=== PATIENT | female | born 1985 | race Caucasian/White ===

== ENCOUNTER 2019-02-12 11:54 | Inpatient (IN) | payer MEDICAID ==
[2019-02-12] MEDS ORDERED: OXYTOCIN 30 UNITS/LR 500 ML IV ×2 (13:00→21:30)
[2019-02-12] MEDS ORDERED: CEFAZOLIN 2 GM/50 ML (PMX) 50 ML IVPB (13:00)
[2019-02-12] MEDS ORDERED: CARBOPROST 250 MCG INJ IM ×2 (13:00→21:30)
[2019-02-12] MEDS ORDERED: METHYLERGONOVINE 0.2 MG INJ IM ×2 (13:00→21:30)
[2019-02-12] MEDS ORDERED: MISOPROSTOL 200 MCG TAB PR ×2 (13:00→21:30)
[2019-02-12 13:09] LABS: ADD MAN DIFF? NO
[2019-02-12] MEDS: LACTATED RINGER'S 1,000 ML IV ×2 (13:10→13:50)
[2019-02-12 13:16] LABS: BASOPHILS % 0.2 % (0.0-2.0); EOSINOPHILS # 0.1 10^3/ul (0.0-0.5); HEMATOCRIT 31.2 % (37.0-47.0); HEMOGLOBIN 10.1 g/dl (12.0-16.0); LYMPHOCYTES # 2.9 10^3/ul (0.8-2.9); LYMPHOCYTES % 35.9 % (15.0-51.0); MEAN CORPUSCULAR HEMOGLOBIN 29.2 pg (29.0-33.0); MEAN CORPUSCULAR HGB CONC 32.4 g/dl (32.0-37.0); MEAN CORPUSCULAR VOLUME 90.2 fl (82.0-101.0); MEAN PLATELET VOLUME 8.6 fl (7.4-10.4); MONOCYTE # 0.8 10^3/ul (0.3-0.9); MONOCYTES % 10.1 % (0.0-11.0); NEUTROPHIL # 4.2 10^3/ul (1.6-7.5); NEUTROPHILS % 52.4 % (39.0-77.0); PLATELET COUNT 233 10^3/UL (140-415); RED BLOOD COUNT 3.46 10^6/ul (4.20-5.40); RED CELL DISTRIBUTION WIDTH 13.1 % (11.5-14.5)
[2019-02-12 13:16] LABS: WHITE BLOOD COUNT 8.1 10^3/ul (4.8-10.8)
[2019-02-12 13:36] LABS: INR 0.91; PROTIME 12.4 Sec (11.9-14.9)
[2019-02-12 13:37] LABS: PARTIAL THROMBOPLASTIN TIME 28.3 Sec (23.0-35.0)
[2019-02-12] MEDS ORDERED: HYDROmorphONE 0.5 MG/0.5 ML SYG IV ×4 (14:00→22:00)
[2019-02-12] MEDS ORDERED: ALBUTEROL 0.083% (NEB) 2.5 MG/3 ML AMP HHN (14:00)
[2019-02-12] MEDS ORDERED: ONDANSETRON 4 MG INJ IV ×2 (14:00→22:00)
[2019-02-12] MEDS ORDERED: KETOROLAC 30 MG INJ IV ×2 (14:00)
[2019-02-12] MEDS ORDERED: NALOXONE (0.4 MG/ML) INJ IV ×2 (14:00→22:00)
[2019-02-12] MEDS ORDERED: DIPHENHYDRAMINE 50 MG INJ IV ×3 (14:00→22:00)
[2019-02-12] MEDS ORDERED: FENTAnyl 50 MCG/ML VIAL IV ×3 (14:00)
[2019-02-12] MEDS ORDERED: METOCLOPRAMIDE 10 MG INJ IV (14:00)
[2019-02-12] MEDS ORDERED: HYDROmorphONE 1 MG/5 ML IV SYRINGE IV ×3 (14:00)
[2019-02-12 14:15] LABS: HEPATITIS B SURFACE ANTIGEN NEGATIVE (NEGATIVE)
[2019-02-12] MEDS: ONDANSETRON 4 MG INJ IV (14:25)
[2019-02-12] MEDS ORDERED: morphine SULFATE/PF (10 MG/10 ML) INJ (16:56)
[2019-02-12] MEDS ORDERED: PHENYLephrine (100 MCG/ML) 5ML SYG (16:56)
[2019-02-12] MEDS ORDERED: OXYTOCIN 30 UNITS/LR 500 ML BAG IV (16:56)
[2019-02-12] MEDS ORDERED: EPHEDrine 25 MG/5 ML SYG (16:56)
[2019-02-12] MEDS ORDERED: FENTAnyl 50 MCG/ML VIAL (17:37)
[2019-02-12] MEDS: OXYTOCIN 30 UNITS/LR 500 ML IV (18:31)
[2019-02-12] MEDS: AZITHROMYCIN 500MG/NS (PMX) 250 ML IVPB (20:55)
[2019-02-12] MEDS: ACETAMINOPHEN 500 MG TAB PO (20:56)
[2019-02-12] MEDS: KETOROLAC 30 MG INJ IV (20:56)
[2019-02-12] MEDS ORDERED: NA PHOSPHATE/BIPHOS 133 ML ENEMA PR (21:30)
[2019-02-12 22:04] LABS: RAPID PLASMA REAGIN NONREACTIVE (NR)
[2019-02-13] MEDS: LACTATED RINGER'S 1,000 ML IV (00:04)
[2019-02-13] MEDS: CEFAZOLIN 2 GM/50 ML (PMX) 50 ML IVPB ×3 (00:44→13:59)
[2019-02-13] MEDS: CLINDAMYCIN 300 MG CAP PO ×4 (05:40→17:19)
[2019-02-13 06:43] LABS: ADD MAN DIFF? NO
[2019-02-13 06:46] LABS: BASOPHILS % 0.2 % (0.0-2.0); EOSINOPHILS % 0.3 % (0.0-7.0); HEMATOCRIT 29.4 % (37.0-47.0); HEMOGLOBIN 9.6 g/dl (12.0-16.0); LYMPHOCYTES # 2.3 10^3/ul (0.8-2.9); MEAN CORPUSCULAR HEMOGLOBIN 29.7 pg (29.0-33.0); MEAN CORPUSCULAR HGB CONC 32.7 g/dl (32.0-37.0); MEAN PLATELET VOLUME 8.7 fl (7.4-10.4); MONOCYTES % 8.4 % (0.0-11.0); NEUTROPHIL # 8.6 10^3/ul (1.6-7.5); NEUTROPHILS % 71.7 % (39.0-77.0); PLATELET COUNT 206 10^3/UL (140-415); RED BLOOD COUNT 3.23 10^6/ul (4.20-5.40); RED CELL DISTRIBUTION WIDTH 13.2 % (11.5-14.5)
[2019-02-13] MEDS: LANOLIN HPA 1 PKT TOP (08:15)
[2019-02-13] MEDS: SENNA/DOCUSATE NA (8.6MG/50MG) TAB PO ×2 (09:01→21:56)
[2019-02-13] MEDS: KETOROLAC 30 MG INJ IV (12:19)
[2019-02-13] MEDS ORDERED: OXYCODONE/ACETAMINOPHEN (5/325) TAB PO (21:30)
[2019-02-13] MEDS ORDERED: HYDROCODONE/APAP (5/325) TAB PO (21:30)
[2019-02-13] MEDS: IBUPROFEN 800 MG TAB PO (21:56)
[2019-02-14] MEDS: CLINDAMYCIN 300 MG CAP PO ×4 (00:27→17:33)
[2019-02-14] MEDS: IBUPROFEN 800 MG TAB PO ×4 (05:47→22:00)
[2019-02-14] MEDS: SENNA/DOCUSATE NA (8.6MG/50MG) TAB PO ×2 (09:41→21:00)
[2019-02-15] MEDS: CLINDAMYCIN 300 MG CAP PO ×3 (00:16→11:54)
[2019-02-15] MEDS: IBUPROFEN 800 MG TAB PO ×2 (02:50→14:39)
[2019-02-15] MEDS: SENNA/DOCUSATE NA (8.6MG/50MG) TAB PO (08:56)
[2019-02-15] MEDS: LANOLIN HPA 1 PKT TOP (08:56)
[2019-02-15] MEDS ORDERED: MEASLES,MUMPS,RUBELLA VACCINE INJ SC* (09:00)
[2019-02-15] MEDS ORDERED: ACETAMINOPHEN 325 MG TAB PO (14:00)
[2019-02-15] MEDS: DIPHTH/TET/ACEL PERTUSS (ADULT) 0.5 ML VIAL IM* (14:41)
== END 2019-02-15 17:00 | disposition home or self-care (01) | DRG 785 ==
LOC: L-D 11:54 → PP1 21:21
PROVIDERS: Obstetrics & Gynecology
PROC: 10D00Z1 Extraction of Products of Conception, Low, Open Approach (ICD-10-PCS; principal; 2019-02-12)
PROC: 0UB70ZZ Excision of Bilateral Fallopian Tubes, Open Approach (ICD-10-PCS; 2019-02-12)
DX: O44.23 Partial placenta previa NOS or without hemorrhage, third trimester (principal); Z3A.38 38 weeks gestation of pregnancy; Z37.0 Single live birth; Z30.2 Encounter for sterilization
CPT/HCPCS: 85025; 85610; 85730; 86592; 86850; 86900; 86901; 87340; 88302; 90715; 99464